=== PATIENT | female | born 1965 | race Caucasian/White ===

== ENCOUNTER 2017-09-06 19:41 | Observation (INO) | payer OTHER ==
[~2017-09-06] VITALS: Ht 167.6 cm; Wt 93.5 kg
[~2017-09-06 19:41] MED LIST: COEN75CA PO; EFF75 PO; GABA-113 PO; SACC250C11; SUMA6KIT INJ
[2017-09-06 20:29] LABS: BASO % 0.5 %; BASO ABS # 0.04 K/uL (0-0.2); EOS % 1.3 %; HEMATOCRIT 38.5 % (37-47); HEMOGLOBIN 13.1 g/dL (12.0-16.0); IG# 0.02 K/uL (0.00-0.02); LYMPH % 30.7 %; MEAN CELL VOLUME 90.8 fL (80-100); MEAN CORPUSCULAR HEMOGLOBIN 30.9 pg (25-34); MONO % 7.1 %; MONO ABS # 0.53 K/uL (0.11-0.59); NEUT % 60.1 %; NEUT ABS # 4.49 K/uL (1.4-6.5); PLATELET COUNT 299 K/uL (130-400); RED CELL DISTRIBUTION WIDTH CV 13.5 % (11.5-14.5); RED CELL DISTRIBUTION WIDTH SD 44.6 fL (36.4-46.3); WHITE BLOOD COUNT 7.48 K/uL (4.8-10.8)
[2017-09-06] MEDS ORDERED: OPTIRAY 320 IV PRN (20:30)
[2017-09-06] MEDS ORDERED: VENL150C PO (20:33)
[2017-09-06] MEDS ORDERED: SUMA25TA12 PO (20:33)
[2017-09-06 20:47] LABS: ALBUMIN 3.8 gm/dl (3.4-5.0); CALCIUM 9.5 mg/dl (8.5-10.1); CREATININE 0.96 mg/dl (0.60-1.20); POTASSIUM 3.4 mmol/L (3.5-5.1)
[2017-09-06 20:50] LABS: TOTAL PROTEIN 7.9 gm/dl (6.4-8.2)
--- NOTE | 2017-09-06 22:08 | DIAGNOSTIC IMAGING REPORT ---
ABD/PELVIS IV CONTRAST ONLY CT DOSE: 696.24 mGy.cm HISTORY: Pain RLQ pain TECHNIQUE: Multiaxial CT images of the abdomen and pelvis were performed following the use of intravenous contrast. A dose lowering technique was utilized adhering to the principles of ALARA. COMPARISON STUDY: None. FINDINGS: Lung bases are clear. Liver enhances uniformly. Gallbladder is negative for distention. Kidneys enhance uniformly. No evidence for hydronephrosis. The adrenal glands are normal. The upper abdominal bowel pattern is nonobstructive. The appendix shows a trace amount of periappendiceal infiltrative change although overall maximum diameter is not increased. Maximum diameters 5.5 mm. There is a small amount of periappendiceal infiltrative change. There is no evidence for abscess collection or obstructive change. The pelvic bowel pattern is nonobstructive. Bladder is midline. There are no contained calcifications. IMPRESSION: 1. Findings consistent with low-grade acute appendicitis. 2. Minimal infiltrative change in the periappendiceal fat, although overall diameter of the appendix is top normal at 5.5 mm. 3. No evidence for abscess collection or obstruction. The above report was generated using voice recognition software. It may contain grammatical, syntax or spelling errors. Electronically signed by: Joel Hernandez M.D. 09/06/2017 10:06 PM Dictated Date/Time: 09/06/2017 10:04 PM
[2017-09-06] MEDS ORDERED: BUPIVACAINE 0.5 % 5 MG/1 ML MPF 30ML VIAL ONE (22:37)
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
[2017-09-06] MEDS ORDERED: MEPERIDINE HCL 25 MG/ML CARP IV PRN (23:15)
[2017-09-06] MEDS ORDERED: ATROPINE SULFATE 0.1 MG/ML 5ML SYR IV PRN (23:15)
[2017-09-06] MEDS ORDERED: HYDROmorphone INJ 1 MG/ML SYR IV PRN (23:15)
[2017-09-06] MEDS ORDERED: LABETALOL HCL IV 5 MG/ML 20ML IV PRN (23:15)
[2017-09-06] MEDS ORDERED: ONDANSETRON INJ 2 MG/ML 2 ML VIAL IV PRN (23:15)
[2017-09-06] MEDS ORDERED: EpHEDrine SULFATE INJ 50 MG/ML AMP IV PRN (23:15)
[2017-09-06] MEDS ORDERED: FENTANYL CITRATE INJ 50 MCG/1 ML 2 ML VIAL IV PRN (23:15)
[2017-09-06] MEDS ORDERED: FENTANYL CITRATE INJ 50 MCG/1 ML 2 ML VIAL ONE (23:16)
[2017-09-06] MEDS ORDERED: MIDAZOLAM HCL 1 MG/ML 2ML VIAL ONE (23:16)
[2017-09-06] MEDS ORDERED: PROPOFOL IV EMULSION 10 MG/ML 20 ML VIAL IV ONE (23:16)
[2017-09-06] MEDS ORDERED: ROCURONIUM BROMIDE 10 MG/ML 5 ML VIAL IV ONE (23:17)
[2017-09-06] MEDS ORDERED: ONDANSETRON INJ 2 MG/ML 2 ML VIAL ONE (23:17)
[2017-09-06] MEDS ORDERED: LIDOCAINE HCL 2% 2 ML VIAL (20MG/ML) ONE (23:17)
[2017-09-06] MEDS ORDERED: NEOSTIGMINE METHYLSULFATE 5 MG/5 ML SYR ONE (23:17)
[2017-09-06] MEDS ORDERED: GLYCOPYRROLATE INJ 0.2 MG/ML VIAL ONE (23:17)
[2017-09-07] VITALS (8 sets, daily range): BP systolic 14–137; BP diastolic 77–91; PULSE 62–74; TEMP 36.4–36.8; O2SAT 95–97; Ht 167.6 cm; Wt 93.5 kg
[2017-09-07] MEDS ORDERED: LEVAQUIN 500MG / 100ML D5W IV SCH
--- NOTE | 2017-09-07 00:40 | [facility] Post Operative Brief Note ---
Immediate Operative Summary Operative Date Sep 07, 2017. Pre-Operative Diagnosis Acute Appendicitis Post-Operative Diagnosis Acute Appendicitis Procedure(s) Performed Laparoscopic Appendectomy Surgeon Dr. Sydnie Banks An/Syq 13 Nav/C2 Operator Surgeon(s) None Estimated Blood Loss 5 ML Findings adhesions of omentum to lower midline incision, mildly thickened appendix with inflammatory change at the tip Fluids (cc crystalloids) 500 cc Specimens Permanent Specimen A: Appendix Drains none Anesthesia GET Complication(s) None Disposition Recovery Room / PACU
[2017-09-07] MEDS ORDERED: KETOROLAC TROMETHAMINE 15 MG/ML VIAL IV PRN (00:45)
[2017-09-07] MEDS ORDERED: ACETAMINOPHEN 325 MG TAB PO PRN ×2 (00:45→10:45)
[2017-09-07] MEDS ORDERED: SUMATRIPTAN SUCCINATE 6 MG/0.5 ML VIAL SQ PRN (00:45)
[2017-09-07] MEDS ORDERED: OXYCODONE/ACETAMINOPHEN 5-325 TAB PO PRN ×2 (00:45)
[2017-09-07] MEDS ORDERED: MoRPHine SULFATE 2 MG/ML CARP IV PRN ×2 (00:45)
[2017-09-07] MEDS ORDERED: ONDANSETRON INJ 2 MG/ML 2 ML VIAL IV PRN (00:45)
--- NOTE | 2017-09-07 01:03 | OPERATIVE REPORT ---
DATE OF OPERATION: 09/07/2017 PREOPERATIVE DIAGNOSIS: Acute appendicitis with history of prior total abdominal hysterectomy. POSTOPERATIVE DIAGNOSIS: Same, and adhesions of omentum to lower abdominal wall. OPERATIVE PROCEDURE: Laparoscopic appendectomy. SURGEON: Sydnie Banks MD. SOFTWARE SALES: None. ESTIMATED BLOOD LOSS: 5 mL. IV FLUIDS: 500 mL. ANESTHESIA: General endotracheal anesthesia. DRAINS: None. SPECIMENS: Appendix. COMPLICATIONS: None. OPERATIVE FINDINGS: Adhesions of omentum to the midline incision. The tip of the appendix was inflamed and was scarred into the pelvis. INDICATIONS: Ms. Nagy is a 51-year-old woman with a history of a prior total abdominal hysterectomy in 1997. She now presented with appendicitis with 3 days of right lower quadrant abdominal pain. She was consented regarding laparoscopic appendectomy and the possible need for conversion depending on state of her adhesions. She consented to proceed. DESCRIPTION OF THE PROCEDURE: The patient received levofloxacin preoperatively. After the induction of general endotracheal anesthesia, she was placed in sequential compression devices. Her abdomen was sterilely prepped and draped. Her previous lower midline incision ended about 2 inches below her umbilicus thus I felt to proceed probably go above the umbilicus. A supraumbilical incision was made and a Veress needle was placed into the peritoneal cavity. The patient was positioned in Trendelenburg first. This was tested with the saline drop test. Pneumoperitoneum was established. Initial pressure was 5 mmHg and this was taken up to 15 mmHg. A 5 mm trocar was placed. An initial inspection of the abdomen revealed adhesions to the lower midline incision extending up to the area around the umbilicus. The trocar site was just superior and to the right of the end of the adhesions. A left 5 mm trocar placed under direct vision. The umbilical trocar was changed to a 12 mm under direct vision and a second 5 mL placed in the right quadrant. We were able to get to the region of the right lower quadrant and the appendix was visualized coursing into the pelvis. The base of the appendix on the cecum was clear of any inflammation. This was cleared of attachments and then divided off the cecum with a firing of the PARAM purple load 45 stapler. The appendiceal mesentery was then taken with 2 sequential firings of the PARAM 45 ortiz load stapler. The very tip of the appendix did appear to be inflamed and this was adhesed down to some pelvic scar tissue which was divided with the stapler. The appendix was placed in an Endobag and removed through the umbilical incision. The abdomen was irrigated and suctioned clear. The trocars were removed. Local anesthesia in the form of 0.5% Marcaine had been injected into all the incisions. The fascia of the umbilicus was closed with 0 Vicryl stitches placed anteriorly. The skin of all 3 incision were closed with running subcuticular 4-0 Vicryl sutures. Steri-Strip and sterile dressings were applied. She was awakened and taken to recovery in stable condition. I attest to the content of the Intraoperative Record and any orders documented therein. Any exception s are noted below.
--- NOTE | 2017-09-07 01:23 | Anesthesiology Progress Note ---
Anesthesia Post Op Note Date & Time Sep 07, 2017 at 01:23 Vital Signs Pain Intensity: 4 Vital Signs Past 12 Hours Date Time Temp Pulse Resp B/P (MAP) Pulse Ox O2 Delivery O2 Flow Rate FiO2 09/07/17 01:05 36.4 62 16 116/73 96 Room Air 09/07/17 00:55 64 14 122/78 95 Room Air 09/07/17 00:45 36.4 58 16 138/88 99 Room Air 09/06/17 23:00 72 20 163/100 96 Room Air 09/06/17 22:22 79 20 147/95 98 Room Air 09/06/17 19:44 36.8 92 18 96 Room Air Notes Mental Status: alert / awake / arousable, participated in evaluation Pt Amnestic to Procedure: Yes Nausea / Vomiting: adequately controlled Pain: adequately controlled Airway Patency, RR, SpO2: stable & adequate BP & HR: stable & adequate Hydration State: stable & adequate Anesthetic Complications: no major complications apparent
[2017-09-07] MEDS ORDERED: LACTATED RINGER'S 1000ML 1,000 ML IV SCH (01:30)
--- NOTE | 2017-09-07 01:53 | EMERGENCY ROOM VISIT NOTE ---
History First contact with patient: 19:48 Chief Complaint: ABDOMINAL PAIN Stated Complaint: SHARP PAIN IN RT SIDE Nursing Triage Summary: right lower quadrant pain for 3 days with no nausea but pain when she moves the right leg. she was urgent care and was sent here for evaluation History of Present Illness The patient is a 51 year old female who presents to the Emergency Room with complaints of right lower quadrant abdominal pain. The patient reports that she has had a sharp pain in her right lower quadrant for the past 3 days. She rates her discomfort a 6/10. The pain has been constant and is worse with movement. The pain radiates across her lower abdomen. She initially had some diarrhea but states this has improved. She denies any vaginal discharge, urinary symptoms, nausea/vomiting or fever. She does report a history of IBS and prior hysterectomy, but denies any other medical problems or abdominal surgeries. Review of Systems A complete 10 point review of systems was reviewed with the patient with pertinent positives and negatives as per history of present illness. All else were negative. Past Medical/Surgical History Medical Problems: (1) Appendicitis, acute Medical Problems: (1) Appendicitis, acute (2) IBS (irritable bowel syndrome) Surgical Problems: (1) History of hysterectomy Social History Smoking Status: Never Smoker Alcohol Use: occasionally Marital Status: Housing Status: lives with significant other Occupation Status: retired Current/Historical Medications Scheduled Gabapentin (Neurontin), 300 MG PO DAILY Saccharomyces Boulardii (Probiotic), DAILY Venlafaxine Hcl (Effexor Xr), 150 MG PO DAILY Scheduled PRN Sumatriptan Succinate (Imitrex Statdose), 1 DOSE INJ UD PRN for Migraine Sumatriptan Succinate (Imitrex), 1 DOSE PO PRN PRN for Migraine Physical Exam Vital Signs Date Time Temp Pulse Resp B/P (MAP) Pulse Ox O2 Delivery O2 Flow Rate FiO2 09/06/17 23:00 72 20 163/100 96 Room Air 09/06/17 22:22 79 20 147/95 98 Room Air 09/06/17 19:44 36.8 92 18 96 Room Air Physical Exam VITALS: Vitals are noted on the nurse's note and reviewed by myself. Vital signs stable. GENERAL: This is a 51-year-old female, in no acute distress, nondiaphoretic, well-developed well-nourished. SKIN: No rashes noted. HEART: Regular rate and rhythm without murmurs gallops or rubs. LUNGS: Clear to auscultation bilaterally without wheezes, rales or rhonchi. ABDOMEN: Positive bowel sounds x 4. Soft, moderate right lower quadrant tenderness to palpation. No guarding or rebound tenderness. Negative Rovsing sign. NEURO: Patient was alert and oriented to person place and time. Medical Decision & Procedures ER Provider Diagnostic Interpretation: ABD/PELVIS IV CONTRAST ONLY FINDINGS: Lung bases are clear. Liver enhances uniformly. Gallbladder is negative for distention. Kidneys enhance uniformly. No evidence for hydronephrosis. The adrenal glands are normal. The upper abdominal bowel pattern is nonobstructive. The appendix shows a trace amount of periappendiceal infiltrative change although overall maximum diameter is not increased. Maximum diameters 5.5 mm. There is a small amount of periappendiceal infiltrative change. There is no evidence for abscess collection or obstructive change. The pelvic bowel pattern is nonobstructive. Bladder is midline. There are no contained calcifications. IMPRESSION: 1. Findings consistent with low-grade acute appendicitis. 2. Minimal infiltrative change in the periappendiceal fat, although overall diameter of the appendix is top normal at 5.5 mm. 3. No evidence for abscess collection or obstruction. Laboratory Results 09/06/17 20:18 Red Blood Count 4.24, Mean Corpuscular Volume 90.8, Mean Corpuscular Hemoglobin 30.9, Mean Corpuscular Hemoglobin Concent 34.0, Mean Platelet Volume 10.0, Neutrophils (%) (Auto) 60.1, Lymphocytes (%) (Auto) 30.7, Monocytes (%) (Auto) 7.1, Eosinophils (%) (Auto) 1.3, Basophils (%) (Auto) 0.5, Neutrophils # (Auto) 4.49, Lymphocytes # (Auto) 2.30, Monocytes # (Auto) 0.53, Eosinophils # (Auto) 0.10, Basophils # (Auto) 0.04 09/06/17 20:18 Test 09/06/17 20:00 09/06/17 20:18 Urine Color DK YELLOW Urine Appearance CLEAR (CLEAR) Urine pH 6.0 (4.5-7.5) Urine Specific [place] 1.021 (1.000-1.030) Urine Protein NEG (NEG) Urine Glucose (UA) NEG (NEG) Urine Ketones NEG (NEG) Urine Occult Blood NEG (NEG) Urine Nitrite NEG (NEG) Urine Bilirubin NEG (NEG) Urine Urobilinogen NEG (NEG) Urine Leukocyte Esterase NEG (NEG) White Blood Count 7.48 K/uL (4.8-10.8) Red Blood Count 4.24 M/uL (4.2-5.4) Hemoglobin 13.1 g/dL (12.0-16.0) Hematocrit 38.5 % (37-47) Mean Corpuscular Volume 90.8 fL (80-100) Mean Corpuscular Hemoglobin 30.9 pg (25-34) Mean Corpuscular Hemoglobin Concent 34.0 g/dl (32-36) Platelet Count 299 K/uL (130-400) Mean Platelet Volume 10.0 fL (7.4-10.4) Neutrophils (%) (Auto) 60.1 % Lymphocytes (%) (Auto) 30.7 % Monocytes (%) (Auto) 7.1 % Eosinophils (%) (Auto) 1.3 % Basophils (%) (Auto) 0.5 % Neutrophils # (Auto) 4.49 K/uL (1.4-6.5) Lymphocytes # (Auto) 2.30 K/uL (1.2-3.4) Monocytes # (Auto) 0.53 K/uL (0.11-0.59) Eosinophils # (Auto) 0.10 K/uL (0-0.5) Basophils # (Auto) 0.04 K/uL (0-0.2) RDW Standard Deviation 44.6 fL (36.4-46.3) RDW Coefficient of Variation 13.5 % (11.5-14.5) Immature Granulocyte % (Auto) 0.3 % Immature Granulocyte # (Auto) 0.02 K/uL (0.00-0.02) Anion Gap 6.0 mmol/L (3-11) Est Creatinine Clear Calc Drug Dose 79.0 ml/min Estimated GFR () 78.8 Estimated GFR (Non- 68.0 BUN/Creatinine Ratio 22.4 (10-20) Calcium Level 9.5 mg/dl (8.5-10.1) Total Bilirubin 0.2 mg/dl (0.2-1) Aspartate Amino Transf (AST/SGOT) 17 U/L (15-37) Alanine Aminotransferase (ALT/SGPT) 32 U/L (12-78) Alkaline Phosphatase 69 U/L (45-117) Total Protein 7.9 gm/dl (6.4-8.2) Albumin 3.8 gm/dl (3.4-5.0) Globulin 4.1 gm/dl (2.5-4.0) Albumin/Globulin Ratio 0.9 (0.9-2) Lipase 254 U/L (73-393) Medications Administered Medications (Trade) Dose Ordered Sig/Elisabeth Route Start Time Stop Time Status Last Admin Dose Admin Bupivacaine HCl (Marcaine 0.5% MPF Inj) 30 ml STK-MED ONCE .ROUTE 09/06/17 22:37 09/06/17 22:38 DC 09/07/17 00:28 22 ML Levofloxacin (Levaquin / D5W) 500 mg TODAY@0000 IV 09/07/17 00:00 09/07/17 02:00 09/06/17 23:45 500 MG ED Course The patient was evaluated as above. Labs were drawn and IV access was obtained. CT of the abdomen and pelvis was performed and read by radiology as above. Dr. Banks of general surgery was consulted. She will evaluate the patient for further management. Medical Decision Differential diagnosis includes appendicitis, colitis, diverticulitis, urinary tract infection, cholecystitis, among others. The patient is a 51-year-old female who presents today complaining of right lower quadrant abdominal pain. Labs revealed no leukocytosis, anemia or concerning electrolyte abnormalities. Urinalysis was not suggestive of infection. CT of the abdomen and pelvis was performed and showed findings consistent with acute appendicitis without complications. Consultation was made with the general surgeon. Patient was taken to the OR for operative management. Medication Reconcilliation Current Medication List: was personally reviewed by me Blood Pressure Screening Patient's blood pressure: Elevated blood pressure Blood pressure disposition: Elevated BP felt to be situational Impression Primary Impression: Appendicitis, acute Departure Information Referrals Joel Boyce M.D. (PCP) Patient Instructions [facility] Problem Qualifiers Primary Impression: Appendicitis, acute Acute appendicitis type: with localized peritonitis Qualified Codes: K35.3 - Acute appendicitis with localized peritonitis
[2017-09-07] MEDS ORDERED: IV FLUIDS COMPLETED PRN (03:45)
[2017-09-07] MEDS: MoRPHine SULFATE 4 MG/ML 1 ML CARP\\VIAL IV PRN ×2 (04:19→10:17)
[2017-09-07] MEDS ORDERED: VENLAFAXINE HCL XR 150 MG CAPXR PO SCH (09:00)
[2017-09-07] MEDS ORDERED: SACCHAROMYCES BOUL (FLORASTOR) 250 MG CAP PO SCH (09:00)
[2017-09-07] MEDS ORDERED: GABAPENTIN 300 MG CAP PO SCH (09:00)
[2017-09-07] MEDS ORDERED: IBUPROFEN 600 MG TAB PO PRN (10:45)
--- NOTE | 2017-09-07 10:49 | Surgery Progress Note ---
Surgery Progress Note Date of Service Sep 07, 2017. Subjective Post OP Day: POD # 0 s/p laparoscopic appendectomy + feeling well, + flatus, + pain controlled (with IV pain medication), + diet ( clear liquids this am), No complaints, No chest pain, No SOB, No bowel movement , No nausea, No vomiting Objective Vital Signs: Date Time Temp Pulse Resp B/P (MAP) Pulse Ox O2 Delivery O2 Flow Rate FiO2 09/07/17 07:54 36.6 64 16 130/89 (103) 96 Room Air 09/07/17 07:45 Room Air 09/07/17 04:25 36.7 68 15 136/88 (104) 97 Room Air 09/07/17 03:59 Room Air 09/07/17 03:25 36.8 74 18 133/91 (105) 95 Room Air 09/07/17 02:25 36.4 65 20 137/89 (105) 97 Room Air 09/07/17 01:55 36.6 62 22 127/84 (98) 96 Room Air 09/07/17 01:25 36.7 68 20 14/77 (56) 97 Room Air 09/07/17 01:15 95 Room Air 09/07/17 01:05 36.4 62 16 116/73 96 Room Air 09/07/17 00:55 64 14 122/78 95 Room Air 09/07/17 00:45 36.4 58 16 138/88 99 Room Air 09/06/17 23:00 72 20 163/100 96 Room Air 09/06/17 22:22 79 20 147/95 98 Room Air 09/06/17 19:44 36.8 92 18 96 Room Air General Appearance: WD/WN, no apparent distress Head: normocephalic, atraumatic Neck: trachea midline Respiratory/Chest: no respiratory distress, no accessory muscle use Abdomen: non distended, soft, no organomegaly, + tenderness (minimal at incision sites), + pertinent finding (dressings present on incisions) Incision(s): clean, dry (dressings clean and dry) Laboratory Results: Results Past 24 Hours Test 09/06/17 20:00 09/06/17 20:18 Range/Units Urine Color DK YELLOW Urine Appearance CLEAR CLEAR Urine pH 6.0 4.5-7.5 Urine Specific [place] 1.021 1.000-1.030 Urine Protein NEG NEG Urine Glucose (UA) NEG NEG Urine Ketones NEG NEG Urine Occult Blood NEG NEG Urine Nitrite NEG NEG Urine Bilirubin NEG NEG Urine Urobilinogen NEG NEG Urine Leukocyte Esterase NEG NEG White Blood Count 7.48 4.8-10.8 K/uL Red Blood Count 4.24 4.2-5.4 M/uL Hemoglobin 13.1 12.0-16.0 g/dL Hematocrit 38.5 37-47 % Mean Corpuscular Volume 90.8 80-100 fL Mean Corpuscular Hemoglobin 30.9 25-34 pg Mean Corpuscular Hemoglobin Concent 34.0 32-36 g/dl Platelet Count 299 130-400 K/uL Mean Platelet Volume 10.0 7.4-10.4 fL Neutrophils (%) (Auto) 60.1 % Lymphocytes (%) (Auto) 30.7 % Monocytes (%) (Auto) 7.1 % Eosinophils (%) (Auto) 1.3 % Basophils (%) (Auto) 0.5 % Neutrophils # (Auto) 4.49 1.4-6.5 K/uL Lymphocytes # (Auto) 2.30 1.2-3.4 K/uL Monocytes # (Auto) 0.53 0.11-0.59 K/uL Eosinophils # (Auto) 0.10 0-0.5 K/uL Basophils # (Auto) 0.04 0-0.2 K/uL RDW Standard Deviation 44.6 36.4-46.3 fL RDW Coefficient of Variation 13.5 11.5-14.5 % Immature Granulocyte % (Auto) 0.3 % Immature Granulocyte # (Auto) 0.02 0.00-0.02 K/uL Sodium Level 137 136-145 mmol/L Potassium Level 3.4 3.5-5.1 mmol/L Chloride Level 108 98-107 mmol/L Carbon Dioxide Level 23 21-32 mmol/L Anion Gap 6.0 3-11 mmol/L Blood Urea Nitrogen 21 7-18 mg/dl Creatinine 0.96 0.60-1.20 mg/dl Est Creatinine Clear Calc Drug Dose 79.0 ml/min Estimated GFR () 78.8 Estimated GFR (Non- 68.0 BUN/Creatinine Ratio 22.4 10-20 Random Glucose 119 70-99 mg/dl Calcium Level 9.5 8.5-10.1 mg/dl Total Bilirubin 0.2 0.2-1 mg/dl Aspartate Amino Transf (AST/SGOT) 17 15-37 U/L Alanine Aminotransferase (ALT/SGPT) 32 12-78 U/L Alkaline Phosphatase 69 45-117 U/L Total Protein 7.9 6.4-8.2 gm/dl Albumin 3.8 3.4-5.0 gm/dl Globulin 4.1 2.5-4.0 gm/dl Albumin/Globulin Ratio 0.9 0.9-2 Lipase 254 73-393 U/L Assessment & Plan POD # 0 s/p laparoscopic appendectomy -vitals stable, afebrile - pain controlled with IV pain medication, has not had any oral pain medication - urinating and ambulating without difficulty Plan: Patient does not like any narcotics, does not tolerate well, would prefer extra strength Tylenol and Ibuprofen as needed for pain, will order continue diet as tolerated continue ambulation if does well with lunch and pain controlled with oral pain medication will discharge home this evening
--- NOTE | 2017-09-07 10:52 | Discharge Instructions ---
Discharge Instructions Date of Service Sep 07, 2017. Admission Reason for Admission: Appendicitis, Acute Discharge Discharge Diagnosis / Problem: same Discharge Goals Goal(s): Decrease discomfort, Improve function Activity Recommendations Activity Limitations: as noted below No heavy lifting over 20 pounds for 2 weeks No strenuous activity until cleared by surgeon No submerging incisions underwater for 2 weeks (no bathing, swimming, or hot tubs) No driving while taking narcotic pain medication or until you are pain free . Instructions / Follow-Up Instructions / Follow-Up You may shower tomorrow morning and remove outer dressings Keep steri strips on incisions for 7 days and then remove. They may fall off on their own that is okay. Walking and light activity is encouraged to prevent blood clots from forming in your legs You may take extra strength Tylenol and Ibuprofen as needed for pain, alternating medications as needed. Follow up in surgical office in 2 weeks for post operative check, please call office at [phone] to make an appointment Current Hospital Diet Patient's current hospital diet: Full Liquid Diet Discharge Diet Recommended Diet: Regular Diet Procedures Procedures Performed: Laparoscopic Appendectomy Pending Studies Studies pending at discharge: yes List of pending studies: appendix pathology will be reviewed at follow up visit Medical Emergencies . Who to Call and When: Medical Emergencies: If at any time you feel your situation is an emergency, please call 911 immediately. . Non-Emergent Contact Non-Emergency issues call your: Primary Care Provider, Surgeon Call Non-Emergent contact if: you have a fever, temperature is above 101, your pain is not controlled, your pain is worsening, your pain is unusual for you, wound has increased drainage, wound has increased redness, wound has increased pain . "Provider Documentation" section prepared by Jerilyn Matute. . VTE Core Measure Inpt VTE Proph given/why not?: SCD's
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
[2017-09-07] MEDS ORDERED: LEVOFLOXACIN / D5W 500 MG in PREMIXED IN D5W 100 ML IV SCH (23:00)
== END 2017-09-07 15:30 | disposition home or self-care (01) ==
LOC: C.EDB 19:42 → C.MSN 09-07 00:43 → ENRESERV 09-07 00:58
PROVIDERS: ADMIT Surgery; ATTEND Surgery
DX: R10.9 Unspecified abdominal pain (principal); G47.33 Obstructive sleep apnea (adult) (pediatric); M79.7 Fibromyalgia; K66.0 Peritoneal adhesions (postprocedural) (postinfection); I34.0 Nonrheumatic mitral (valve) insufficiency; K58.9 Irritable bowel syndrome, unspecified; Z90.710 Acquired absence of both cervix and uterus

== ENCOUNTER → 2017-12-06 | Day surgery (SDC) | payer OTHER ==
[2017-11-16 09:12] VITALS: BMI 29.0
--- NOTE | 2017-12-05 15:24 | HISTORY & PHYSICAL EXAMINATION ---
DATE OF ADMISSION: 12/06/2017 HISTORY OF PRESENT ILLNESS: A 51-year-old female presents for preoperative evaluation, requesting surgery. Condition is located in the first toe, described as aching and sore the condition is unknown, severity of the condition is graded as a 9 on a 10 point scale on the right being is worse as it gets. She notes aching type pain, variability, up and down depending on her activity level. The patient notes that following the injection, she felt a pop in her toe and an increased amount of pain that then resolved. Other past treatments have included radiograph, insoles, accommodative orthotics, injections, oral medications. The patient has been treated for this problem since 2010, being initially treated at [facility] where her symptoms began in the right foot and she has had treatment conservatively with little to no long-term relief. Due to the nature and severity of the discomfort, she is requesting surgical intervention. PAST SURGICAL HISTORY: Shoulder surgery in 2000, jaw surgery in 1983, appendectomy in 2018. PAST MEDICAL HISTORY: Sleep apnea, cardiac disease, mitral regurg, anxiety disorder, fibromyalgia. : Probiotic, Claritin, Topamax, Effexor, multivitamin Clinoril. ALLERGIES: TO KEFLEX. FAMILY HISTORY: Cardiovascular disease, diabetes, heart attack, high cholesterol, and hypertension. SOCIAL HISTORY: The patient admits to alcohol use, drinking described as social. REVIEW OF SYSTEMS: Unremarkable except chief complaint. PHYSICAL EXAMINATION: VITAL SIGNS: BP 122/78. Height 5 feet 7 inches, weight 196 pounds, body mass index 31. CONSTITUTIONAL: The patient appears well developed and nourished with good attention to grooming and habitus. HEAD AND FACE: Head is normocephalic and atraumatic without any gross head, face, or neck masses. EYES: Conjunctival and pupillary light and accommodation are normal. EARS, NOSE, MOUTH, AND THROAT: Unremarkable. NECK: Neck is supple. Trachea is midline without any adenopathy or crepitance palpable. CARDIOVASCULAR: Normal S1, S2 without murmur, gallops, rubs, or clicks noted. Cardiovascular exam is normal. RESPIRATORY: Chest is symmetric. No scars are visible. No port or pacemaker. LUNGS: Clear to auscultation bilaterally and equal. GASTROINTESTINAL: Abdominal organs, bladder, and kidney show no abnormalities, masses, tenderness, or rigidity. LYMPHATIC: No popliteal, inguinal, supraclavicular lymphadenopathy noted. LOWER EXTREMITY VASCULAR: Vascular: DP palpable. PT palpable. DERMATOLOGIC: Inspection of the right hallux metatarsophalangeal joint shows bony prominence, right first MTPJ with redness around the joint. NEUROLOGICAL: Touch, pin, vibratory and proprioception sensations are normal. Deep tendon reflexes normal. MUSCULOSKELETAL: Muscle tone is normal. Muscle strength is 5/5 all groups tested. Inspection and palpation bones, joints, muscles reveals capsulitis. First metatarsophalangeal joint shows evidence of limited movement with pain and range of motion decreased, painful dorsiflexion, painful plantar flexion and smooth. IMPRESSION: 1. Capsulitis, right first metatarsophalangeal joint. 2. Hallux limitus, right. 3. Difficulty walking. 4. Pain lower extremity, right foot. 5. Bursitis. 6. History of trauma, [place] in [place] in 1990, first metatarsophalangeal joint. PLAN: I discussed mechanical and congenital etiology of patient's deformity. Conservative treatment consists of extra depth shoes, accommodative padding, steroid injections, nonsteroidals, orthotics to slow down the progression of deformity. Surgical procedures to be performed: 1. Implant, metatarsophalangeal joint, total. 2. Cheilectomy, right first MTPJ. This will be performed under general anesthesia as an outpatient at the hospital. The procedure, risks and complications were fully reviewed with the patient. Consent form and foot diagram instruction reviewed and all of the patient's questions were answered. Complications were discussed in detail with the patient including pain, infection, swelling that may or may not be excessive, pins and needles feeling, numbness, metatarsalgia, excessive bleeding, delay or nonhealing of bone, delay or nonhealing of skin, enlarged scar, failure of the procedure, reoccurrence or worsening condition which may or may not require further surgery, adverse reaction to anesthesia, allergic reaction to suture or other implant material, loss of toe, foot, or leg, flail toe, stiff toe, short toe, elevated toe, transfer lesion or callus, peripheral neurovascular complications such as phlebitis, damage to nerves or vascular structures, recurrent pain, recurrent pain, significant chronic pain, chronic nerve pain or damage, and general medical complications. The patient will be required to be in a surgery shoe for a minimum of 3-6 weeks and not return to dress shoe for 8-12 weeks depending on postop edema. The patient is aware this is an elective procedure and I recommend a second opinion. The patient stated she understood. Consent form signed with a copy of foot diagram and illustration given to the patient. Verbal and written postop instructions were given. The patient will be required to be in a surgery shoe for a minimum of 3-6 weeks and not return to dress shoe for 8-12 weeks depending on postop edema. The patient will return to the office for postop check or sooner if medically necessary. Instructed to keep dressing clean, dry and intact until seen at the office. At time the preoperative appointment, prescriptions for Keflex and erythromycin were dispensed.
[~2017-12-06] VITALS: Ht 170.2 cm; Wt 86.4 kg
[~2017-12-06] MED LIST changes: +ATROPINE SULFATE 0.1 MG/ML 5ML SYR IV PRN; +BUPIVACAINE 0.5 % 5 MG/1 ML PF 10ML VIAL ONE; +CLR10 PO; -COEN75CA PO; +DEXAMETHASONE SOD INJ 4 MG/ML VIAL ONE; -EFF75 PO; +ERYTHROMYCIN LACTOBIONATE IV SCH; +FENTANYL CITRATE INJ 50 MCG/1 ML 2 ML VIAL IV PRN; +FENTANYL CITRATE INJ 50 MCG/1 ML 2 ML VIAL ONE; -GABA-113 PO; +KETOROLAC TROMETHAMINE 30 MG/ML VIAL IV. PRN; +LACTATED RINGER'S 1000ML 1,000 ML IV SCH; +LIDOCAINE HCL 2% 2 ML VIAL (20MG/ML) ONE; +MIDAZOLAM HCL 1 MG/ML 2ML VIAL ONE; +MULT-506 PO; +NSS IV SCH; +ONDANSETRON INJ 2 MG/ML 2 ML VIAL IV PRN; +ONDANSETRON INJ 2 MG/ML 2 ML VIAL ONE; +PROPOFOL IV EMULSION 10 MG/ML 20 ML VIAL IV ONE; -SACC250C11; +SACC250C11 PO; +SODIUM CHLORIDE 0.9% 1000ML 1,000 ML IV SCH; +SULI200T4 PO; +SUMA25TA12 PO; +VENL150C PO
[2017-12-06 06:01] VITALS: BP 139/97; PULSE 81; TEMP 36.9; O2SAT 95; Ht 170.2 cm; Wt 86.4 kg
--- NOTE | 2017-12-06 06:48 | History & Physical Bridge Note ---
H&P Re-Evaluation Bridge Note: I have examined the patient, reviewed the History & Physical and in the interval since the performance of the History & Physical I have noted the following changes of clinical significance: No changes noted
--- NOTE | 2017-12-06 06:49 | Discharge Instructions ---
Discharge Instructions Date of Service Dec 06, 2017. Admission Reason for Admission: Hallux Limitis, Capsulitis Right 1ST Metatarsal Ph Discharge Discharge Diagnosis / Problem: same as admission Diagnosis Discharge Goals Goal(s): Decrease discomfort Activity Recommendations Activity Limitations: as noted below Medications: * Resume previous medications unless instructed by your surgeon. * Take your medications as prescribed. Call our office ([phone]) at any time, if you experience severe pain that does not subside shortly after taking your pain medication. Activity: * Do not put any standing weight on your operated foot/ankle. Use the crutches or walker as instructed. Special Care: * Keep your bandage clean and dry. Do not remove your bandage unless otherwise instructed. A small amount of blood may appear on the bandage over the surgical site. Call our office ([phone]) if you bandage becomes blood-soaked or wet. * Elevate your operated foot/ankle on pillows, above the level of your heart, as often as possible during the first 2-3 days following surgery. Keep your knee flexed slightly with a pillow under your knee when you elevate your foot/ankle. * Apply a ice bag to your foot/ankle over the operative site for 20-30 minutes out of each hour while you are awake. Do not allow the ice bag to directly contact bare skin. * Avoid bumping or handling any pins visible in your toes. If any pin feels or appears loose, call the office ([phone]). * Take your oral temperature in the morning and at bedtime. Call our office ([phone]) if your temperature rises above 101 degrees Fahrenheit. Call your surgeon's office at ([phone]) for any problems or concerns such as excessive bleeding and/or pain unrelieved by your prescribed pain medications. If you have any questions, please do not hesitate to ask them. Avoid all tobacco products. If you need help to stop smoking, call [place]'s FREE QUITLINE at . This is a free call. Follow-up: Follow-up with Dr. Kay . Current Hospital Diet Patient's current hospital diet: Discharge Diet Recommended Diet: Regular Diet Pending Studies Studies pending at discharge: no Medical Emergencies . Who to Call and When: Medical Emergencies: If at any time you feel your situation is an emergency, please call 911 immediately. . Non-Emergent Contact Non-Emergency issues call your: Primary Care Provider . "Provider Documentation" section prepared by Heidi Ford. .
--- NOTE | 2017-12-06 09:04 | [facility] Post Operative Brief Note ---
Immediate Operative Summary Operative Date Dec 06, 2017. Pre-Operative Diagnosis Capsulitis, right first metatarsophalangeal joint Post-Operative Diagnosis Same as preop Procedure(s) Performed Cheilectomy Metatarsal Phalangeal Joint, tenotomy, Total Implant Arthroplasty Metatarsal Phalangeal Joint Right 1st Surgeon Dr. Kay Wound/Ostomy Clinical Nurse Specialist Surgeon(s) None Estimated Blood Loss 3 ML Findings Consistent with Post-Op Diagnosis Specimens A. Bone from right great toe Drains None Anesthesia Type General Regional Complication(s) none
--- NOTE | 2017-12-06 09:28 | DIAGNOSTIC IMAGING REPORT ---
FOOT 2 VIEWS CLINICAL HISTORY: 51 years-old Female presenting with RT FOOT. TECHNIQUE: 2 fluoroscopic image(s) recorded as part of an intraoperative procedure. COMPARISON: None. FINDINGS/IMPRESSION: Postsurgical changes of arthroplasty of the first metatarsophalangeal joint. Normal anatomic alignment. No gross evidence of hardware complication or periprosthetic fracture. Please see surgical report for further details. Fluoroscopy dosage (mGy): 0.62. Fluoroscopy time: 27.3 seconds. Number of fluoroscopic spot images: 0. Electronically signed by: Kareem Torres M.D. 12/06/2017 9:27 AM Dictated Date/Time: 12/06/2017 9:25 AM
[2017-12-06 09:58] VITALS: BP 137/84; PULSE 79; TEMP 36.5; O2SAT 95
[2017-12-06 10:30] VITALS: BP 133/81; PULSE 80; TEMP 36.3; O2SAT 96
--- NOTE | 2017-12-06 10:52 | Anesthesiology Progress Note ---
Anesthesia Post Op Note Date & Time Dec 06, 2017 at 10:52 Vital Signs Pain Intensity: 0 Vital Signs Past 12 Hours Date Time Temp Pulse Resp B/P (MAP) Pulse Ox O2 Delivery O2 Flow Rate FiO2 12/06/17 10:30 36.3 80 20 133/81 96 Room Air 12/06/17 09:58 36.5 79 20 137/84 95 Room Air 12/06/17 09:45 36.6 89 16 137/100 96 12/06/17 09:35 69 16 140/99 96 Room Air 12/06/17 09:25 73 16 140/95 100 Oxymask 10 12/06/17 09:15 92 16 141/100 100 Oxymask 10 12/06/17 09:07 36.6 93 16 121/101 100 Oxymask 10 12/06/17 06:01 36.9 81 18 139/97 (111) 95 Room Air Notes Mental Status: alert / awake / arousable, participated in evaluation Pt Amnestic to Procedure: Yes Nausea / Vomiting: adequately controlled Pain: adequately controlled Airway Patency, RR, SpO2: stable & adequate BP & HR: stable & adequate Hydration State: stable & adequate Anesthetic Complications: no major complications apparent
--- NOTE | 2017-12-06 11:02 | OPERATIVE REPORT ---
DATE OF OPERATION: 12/06/2017 SURGEON: Dr. Kay. PREOPERATIVE DIAGNOSES: 1. Hallux limitus. 2. Degenerative joint disease, right first metatarsophalangeal joint. POSTOPERATIVE DIAGNOSES: Same. PROCEDURES: 1. Cheilectomy, right first MTPJ. 2. Tenotomy extensor hallucis brevis, right hallux. 3. Total implant arthroplasty, right first MTPJ. ANESTHESIA: General with regional field block performed by anesthesia. HEMOSTASIS: Pneumatic ankle tourniquet inflated to a level of 250 mmHg for a total tourniquet time of 70 minutes. ESTIMATED BLOOD LOSS: Less than 3 mL. MATERIALS: 2-0, 3-0 Vicryl, 4-0 nylon Arthrosurface toe motion 1.5 x 3.5 with 1 mm poly. FINDINGS: The 3rd of the dorsal surface of the metatarsal head was down to bone with no cartilage remaining, gryphotic bone changes noted around the first met head and the base of the proximal phalanx. HISTOPATHOLOGY: Bone sent. INJECTABLES: None. CONDITION: The patient tolerated the procedure and anesthesia well without complications, transferred to recovery room with vital signs stable and neurovascular status intact. PROCEDURE: The patient was brought to the OR and placed on the OR table in supine position. Upon completion of general anesthesia and regional field block by the anesthesia department, the extremity was scrubbed, prepped and draped in the usual aseptic fashion. A well-padded ankle tourniquet was applied to the right lower extremity. The extremity was scrubbed, prepped, and draped in the usual aseptic fashion. Incision was made just medial to tendon extensor hallucis longus with care to preserve all neurovascular structures. Dissection was carried down to the level of the capsular structures that was incised linearly. A portion of the extensor hallucis brevis tendon was removed. The sesamoids were freed from the base of the metatarsal head. A long linear capsulotomy was created. A guidewire was placed in the first metatarsal. The drill guide was used to locate the axis, normal articular surface of the defect. The guidewire was placed and confirmation of the guidewire was placed using the C-arm. Step drill was placed over the guide pin and drilled until the proximal shoulder of step drill was flushed with the articular surface. The hole was tapped to josephien noted on the tap and then it was decompressed, approximately a half of a turn following this for an additional 2 mm of joint space. Clean taper post placed in the area after removal of the guidewire and irrigation of the area. Temporary spacer implant was placed after the central reaming of the taper of the post. Appropriate surface reamer was used based on the offsets of the articular component. Dorsal reamer guide was placed; dorsal aspect was down to final advancement placement. The sizing trial was placed. Following this, the gryphotic amount of bone around the joint was removed. At this time, a guidewire was placed centrally in the proximal phalanx. This was checked using fluoroscopy. The phalangeal reamer was used to ream the proximal phalanx. This area was then tapped with 1.5 guide pin. The trial implant was noted. There was approximately 75 degrees range of motion, dorsiflexion and adequate plantarflexion. The sesamoids were slightly freed plantarly again using the [place] elevator. The wound was copiously lavaged with normal saline. The trials were removed and a placement of a 1535 implant with poly was placed. The joint was taken through range of motion, which was within normal limits dorsiflexion and plantarflexion. The wound was copiously lavaged with normal saline. Closure began of the deep capsular structures using 2-0 Vicryl in a box stitch technique. Superficial skin margins were closed using 3-0 Vicryl in a box stitch technique. Skin margins were closed with nylon 4-0 in a simple direct interrupted and horizontal fashion. Dry sterile compressive dressing consisting of Adaptic, 4 x 4's, Laura, and an Satinder was applied. The patient tolerated the procedure and anesthesia well without complications, transferred to recovery room with vital signs stable and neurovascular status intact. I attest to the content of the Intraoperative Record and any orders documented therein. Any exception s are noted below.
== END | disposition home or self-care (01) ==
LOC: C.ACU 05:35
PROVIDERS: ATTEND Podiatrist Foot & Ankle Surgery
DX: M20.5X1 Other deformities of toe(s) (acquired), right foot (principal); M19.071 Primary osteoarthritis, right ankle and foot; G47.30 Sleep apnea, unspecified; M79.7 Fibromyalgia; I34.0 Nonrheumatic mitral (valve) insufficiency; Z88.1 Allergy status to other antibiotic agents; Z82.49 Family history of ischemic heart disease and other diseases of the circulatory system; Z83.3 Family history of diabetes mellitus